=== PATIENT | female | born 1975 | race Caucasian/White ===

== ENCOUNTER 2021-01-05 06:30 | Emergency (ER) | payer OTHER ==
[2021-01-05] MEDS ORDERED: Nitroglycerin 2% Oint 1 GM UD Packet TOP STA (06:50)
--- NOTE | 2021-01-05 06:51 | EDM.PDOC ---
ED HPI GENERAL MEDICAL PROBLEM - General Chief Complaint: Chest Pain Stated Complaint: [facility] Time Seen by Provider: 01/05/21 06:35 Source of Information: Reports: Patient History Limitations: Reports: No Limitations - History of Present Illness INITIAL COMMENTS - FREE TEXT/NARRATIVE: Ms. Ordonez is a pleasant 45-year-old who is now brought to the ED by EMS after she she was awoken around 04:30 this morning with burning retrosternal chest pain with a numbness sensation down her left upper extremity to her elbow. She has had mild associated dyspnea and slight diaphoresis, although no associated nausea or sense of impending doom. She states that she had less severe similar symptoms several times over the past couple of days. No similar symptoms prior to a couple of days ago. She took some TUMS last night, which did not help, although the pain resolved on its own. She took some additional TUMS this morning, which did not help. EMS gave the patient 4 baby aspirin, 50 mcg of fentanyl, and 1 mg of lorazepam. At this time, she states that her pain is still present, but less severe. Here in the ED, the patient is initially found to be hemodynamically stable, afebrile, saturating 95% on room air. She appears to be relatively comfortable, in no acute distress. Prior to a couple of days ago, the patient denies having a recent fever, chills, sore throat, ear pain, nasal or sinus congestion, cough, dyspnea, chest pain, palpitations, nausea, vomiting, constipation, diarrhea, abdominal pain, urinary symptoms, recent weight gain or weight loss, recent bloody bowel movements or black bowel movements, recent joint aches, headaches, or rashes. The patient lives in [place]. She has received 2 COVID vaccinations. chest Pain Score (Numeric/FACES): 4 - Related Data Allergies Allergy/AdvReac Type Severity Reaction Status Date / Time No Known Allergies Allergy Verified 01/05/21 06:54 Home Meds: Home Meds Sertraline HCl 100 mg PO DAILY 01/05/21 [History] rOPINIRole HCl [Ropinirole ER] 1 mg PO BEDTIME 01/05/21 [History] traZODone HCl [Trazodone HCl] 50 mg PO BEDTIME 01/05/21 [History] Past Medical History Musculoskeletal History: Reports: Osteoarthritis Psychiatric History: Reports: Anxiety, Depression, Other (See Below) (Fibromyalgia. Insomnia. Restless leg syndrome.). Denies: Suicidal Ideation - Past Surgical History HEENT Surgical History: Reports: Oral Surgery (dental extractions), Tonsillectomy Female Surgical History: Reports: Section (x 3), Tubal Ligation Musculoskeletal Surgical History: Reports: Arthroscopic Knee (left), ORIF (left foot) Social & Family History - Tobacco Use Tobacco Use Status *Q: Current Every Day Tobacco User Years of Tobacco use: 28 Packs/Tins Daily: 1 Tobacco Use Comment: Started smoking 1992 - Alcohol Use Alcohol Use History: Yes Alcohol Use Frequency: Rarely - Recreational Drug Use Recreational Drug Use: No - Living Situation & Occupation Living situation: Reports: Single, with Family Occupation: Employed (clinical assistant) ED ROS GENERAL - Review of Systems Review Of Systems: Comprehensive ROS is negative, except as noted in HPI. ED EXAM, GENERAL - Physical Exam Exam: See Below Exam Limited By: No Limitations General Appearance: Alert, WD/WN, No Apparent Distress Eye Exam: Bilateral Eye: EOMI, Normal Inspection Ears: Normal External Exam, Hearing Grossly Normal Nose: Normal Inspection Throat/Mouth: Normal Inspection, Normal Lips, Normal Voice, No Airway Compromise Head: Atraumatic, Normocephalic Neck: Normal Inspection, Full Range of Motion Respiratory/Chest: No Respiratory Distress, Lungs Clear, Normal Breath Sounds, No Accessory Muscle Use, Chest Non-Tender (including palpation of the sternum) Cardiovascular: Normal Peripheral Pulses, Regular Rate, Rhythm, No Gallop, No JVD, No Murmur, No Rub Peripheral Pulses: 3+: Radial (L), Radial (R) GI/Abdominal: Normal Bowel Sounds, Soft, Non-Tender (including the epigastrium), No Organomegaly, No Distention, No Abnormal Bruit, No Mass Back Exam: Normal Inspection, Full Range of Motion, NT Extremities: Normal Inspection, Normal Range of Motion, Normal Capillary Refill Neurological: Alert, Oriented, Normal Cognition, No Motor/Sensory Deficits Psychiatric: Normal Affect Skin Exam: Warm, Dry, Intact, Normal Color, No Rash Course - Vital Signs Last Recorded V/S: Last Vital Signs Temp 36.4 C 01/05/21 06:45 Pulse 86 01/05/21 06:45 Resp 18 01/05/21 06:45 BP 106/78 01/05/21 06:45 Pulse Ox 95 01/05/21 06:45 - Orders/Labs/Meds Labs: Laboratory Tests 01/05/21 01/05/21 01/05/21 Range/Units 06:40 06:42 06:42 WBC 11.58 H (3.98-10.04) K/mm3 RBC 5.14 (3.98-5.22) M/mm3 Hgb 15.1 (11.2-15.7) gm/dl Hct 45.6 H (34.1-44.9) % MCV 88.7 (79.4-94.8) fl MCH 29.4 (25.6-32.2) pg MCHC 33.1 (32.2-35.5) g/dl RDW Std Deviation 48.7 H (36.4-46.3) fL Plt Count 213 (182-369) K/mm3 MPV 10.7 (9.4-12.3) fl Neutrophils % (Manual) 83 H (40-60) % Band Neutrophils % 0 (0-10) % Lymphocytes % (Manual) 13 L (20-40) % Atypical Lymphs % 0 % Monocytes % (Manual) 1 L (2-10) % Eosinophils % (Manual) 1 (0.7-5.8) % Basophils % (Manual) 2 H (0.1-1.2) Platelet Estimate Adequate RBC Morph Comment Normal PT 9.9 (9.7-12.0) SECONDS INR < 0.93 APTT 20.6 L (21.7-31.4) SECONDS D-Dimer, Quantitative 0.41 (0.19-0.50) mg/L Sodium (136-145) mEq/L Potassium (3.5-5.1) mEq/L Chloride (98-107) mEq/L Carbon Dioxide (21-32) mEq/L Anion Gap (5-15) BUN (7-18) mg/dL Creatinine (0.55-1.02) mg/dL Est Cr Clr Drug Dosing mL/min Estimated GFR (MDRD) (>60) mL/min BUN/Creatinine Ratio (14-18) Glucose (70-99) mg/dL Calcium (8.5-10.1) mg/dL Total Bilirubin (0.2-1.0) mg/dL AST (15-37) U/L ALT (14-59) U/L Alkaline Phosphatase (46-116) U/L Troponin I (0.00-0.056) ng/mL NT-Pro-B Natriuret Pep (0-125) pg/mL Total Protein (6.4-8.2) g/dl Albumin (3.4-5.0) g/dl Globulin gm/dL Albumin/Globulin Ratio (1-2) SARS-CoV-2 RNA (LIANA) Negative (NEGATIVE) 01/05/21 01/05/21 Range/Units 06:42 06:42 WBC (3.98-10.04) K/mm3 RBC (3.98-5.22) M/mm3 Hgb (11.2-15.7) gm/dl Hct (34.1-44.9) % MCV (79.4-94.8) fl MCH (25.6-32.2) pg MCHC (32.2-35.5) g/dl RDW Std Deviation (36.4-46.3) fL Plt Count (182-369) K/mm3 MPV (9.4-12.3) fl Neutrophils % (Manual) (40-60) % Band Neutrophils % (0-10) % Lymphocytes % (Manual) (20-40) % Atypical Lymphs % % Monocytes % (Manual) (2-10) % Eosinophils % (Manual) (0.7-5.8) % Basophils % (Manual) (0.1-1.2) Platelet Estimate RBC Morph Comment PT (9.7-12.0) SECONDS INR APTT (21.7-31.4) SECONDS D-Dimer, Quantitative (0.19-0.50) mg/L Sodium 140 (136-145) mEq/L Potassium 4.1 (3.5-5.1) mEq/L Chloride 105 (98-107) mEq/L Carbon Dioxide 26 (21-32) mEq/L Anion Gap 13.1 (5-15) BUN 13 (7-18) mg/dL Creatinine 0.9 (0.55-1.02) mg/dL Est Cr Clr Drug Dosing 70.28 mL/min Estimated GFR (MDRD) > 60 (>60) mL/min BUN/Creatinine Ratio 14.4 (14-18) Glucose 133 H (70-99) mg/dL Calcium 9.5 (8.5-10.1) mg/dL Total Bilirubin 0.3 (0.2-1.0) mg/dL AST 18 (15-37) U/L ALT 22 (14-59) U/L Alkaline Phosphatase 123 H (46-116) U/L Troponin I 0.589 H* (0.00-0.056) ng/mL NT-Pro-B Natriuret Pep 156 H (0-125) pg/mL Total Protein 7.0 (6.4-8.2) g/dl Albumin 3.5 (3.4-5.0) g/dl Globulin 3.5 gm/dL Albumin/Globulin Ratio 1.0 (1-2) SARS-CoV-2 RNA (LIANA) (NEGATIVE) Meds: Medications Discontinued Medications Generic Name Dose Route Start Last Admin Trade Name Freq PRN Reason Stop Dose Admin Heparin Sodium (Porcine) 4,000 units 01/05/21 07:06 01/05/21 07:19 Heparin Sodium 5,000 Units/Ml Vial IVPUSH 01/05/21 07:07 4,000 units .BOLUS STA Administration Hydromorphone HCl 0.5 mg 01/05/21 07:10 01/05/21 07:17 Hydromorphone 0.5 Mg/0.5 Ml Syringe IVPUSH 01/05/21 07:11 0.5 mg ONETIME ONE Administration Heparin Sodium/Dextrose 25,000 units in 500 mls @ 20 mls/hr 01/05/21 07:15 01/05/21 07:20 Heparin 25,000 Units In D5w 500 Ml IV 1,000 units/hr TITRATE NHIARIKA 20 mls/hr Administration Protocol 1,000 UNITS/HR Nitroglycerin 0.5 gm 01/05/21 06:50 01/05/21 07:00 Nitroglycerin 2% Oint 1 Gm Ud Packet TOP 01/05/21 06:51 0.5 gm ONETIME STA Administration Tenecteplase 50 mg 01/05/21 07:04 01/05/21 07:18 Tenecteplase 50 Mg Kit IV 01/05/21 07:05 50 mg ONETIME STA Administration Protocol - Re-Assessments/Exams Free Text/Narrative Re-Assessment/Exam: 01/05/21 06:46 The patient was given 4 baby aspirin, fentanyl 50 mcg, and lorazepam 1 mg per EMS en route to the ED. an ECG, obtained at triage, indicates an acute inferior wall MT. I have ordered a work-up that includes several blood tests, a portable chest x-ray, and a swab for the SARS-CoV-2 virus. In the meantime, 1/2" of nitropaste will be applied. 01/05/21 07:10 Case discussed with Yandy at [facility] at 06:54. Case then discussed with Dr. Wright, ED physician at [facility], at 06:59. Dr. Gavin, Embedded Nurse at [facility], added to the call at 07:01. He recommended discontinuation of the nitroglycerin paste, and that we give TNKase and a heparin drip. The patient will be transported to their ED, then go directly to the [facility]. The patient will be transported by ground ambulance. 01/05/21 07:28 Portable chest radiograph appears to be grossly normal. The cardiac silhouette is within normal limits. No pulmonary vascular congestion. No pleural effusions seen on this AP view. No focal infiltrate. No pneumothorax. Formal read per the Radiologist pending. The patient's CBC is remarkable for mild leukocytosis of 11.58, and a Hct slightly elevated at 45.6 with a Hgb within normal limits at 15.1, and the remainder of her CBC being unremarkable. Her CMP is remarkable for mild hyperglycemia of 133, with remainder of her CMP being unremarkable. Her troponin is significantly elevated at 0.589. Her pro-BNP, D-dimer, coags, and swab for the SARS-CoV-2 virus are still pending. 01/05/21 07:33 The portable chest x-ray image has been pushed to [facility]. 01/05/21 07:51 The patient's D-dimer is within normal limits at 0.41. Her coags are within normal limits. Her swab for the SARS-CoV-2 virus is negative. 01/05/21 08:30 The patient's pro-BNP is slightly elevated at 156. Departure - Departure Time of Disposition: 07:12 Disposition: DC/Tfer to [facility] Reason for Transfer *Q: Primary PCI Indicated Condition: Fair Clinical Impression: ST elevation myocardial infarction (STEMI) of inferior wall Referrals: PCP,Not In Area [Ordering Only Provider] - Forms: ED Department Discharge Sepsis Event Note (ED) - Focused Exam Vital Signs: Vital Signs Temp Pulse Resp BP Pulse Ox 01/05/21 06:45 36.4 C 86 18 106/78 95
[2021-01-05] MEDS ORDERED: Tenecteplase 50 MG Kit IV STA (07:04)
[2021-01-05] MEDS ORDERED: Heparin Sodium 5,000 Units/ML Vial IVPUSH STA (07:06)
[2021-01-05] MEDS ORDERED: HYDROmorphone 0.5 MG/0.5 ML Syringe IVPUSH ONE (07:10)
[2021-01-05] MEDS ORDERED: Heparin Sodium/D5W 25,000 UNITS/500 ML BAG IV SCH (07:15)
--- NOTE | 2021-01-05 08:14 | CR ---
Chest: Portable view of the chest was obtained. Comparison: No prior chest imaging is available. Heart size is at the upper limits of normal. Upper mediastinum is normal. Lungs are clear with no acute parenchymal change. Bony structures show nothing acute. Impression: 1. Heart size is at the upper limits of normal. Nothing acute is appreciated on portable chest x-ray. Diagnostic code #1
== END 2021-01-05 07:30 ==
LOC: JD.ED 06:30
DX: I21.19 ST elevation (STEMI) myocardial infarction involving other coronary artery of inferior wall (principal); F17.210 Nicotine dependence, cigarettes, uncomplicated; Z20.822 Contact with and (suspected) exposure to COVID-19
CPT/HCPCS: 36415; 71045; 80053; 83880; 84484; 85007; 85027; 85379; 85610; 85730; 87635; 93005; 96374; 96375; 99285; A9270; J1170; J1644; J3101; U0002